=== PATIENT | female | born 1960 | race Caucasian/White ===

== ENCOUNTER 2022-11-12 12:03 | Inpatient (IN) | payer MEDICARE ==
[~2022-11-12] VITALS: Ht 172.7 cm; Wt 114.4 kg
[2022-11-12 12:47] LABS: BASOPHILS ABSOLUTE AUTO 0.05 K/mm3 (0.00-0.23); BASOPHILS PERCENT AUTO 1 % (0-2); EOSINOPHILS ABSOLUTE AUTO 0.24 K/mm3 (0.00-0.68); EOSINOPHILS PERCENT AUTO 3 % (0-6); Hematocrit 43.1 % (33.0-51.0); Hemoglobin 14.2 g/dL (11.5-16.0); IMMATURE GRAN ABSOLUTE AUTO 0.04 K/mm3 (0.00-0.10); IMMATURE GRAN PERCENT AUTO 0 % (0-1); LYMPHOCYTES ABSOLUTE AUTO 2.02 K/mm3 (0.84-5.20); LYMPHOCYTES PERCENT AUTO 22 % (21-46); MONOCYTES ABSOLUTE AUTO 0.67 K/mm3 (0.16-1.47); MONOCYTES PERCENT AUTO 7 % (4-13); Mean Corpuscular HGB 31.1 pg (26.0-34.0); Mean Corpuscular HGB Conc 32.9 g/dL (31.5-36.5); Mean Corpuscular Volume 95 fL (80-100); Mean Platelet Volume 9.3 fL (9.1-12.4); NEUTROPHILS ABSOLUTE AUTO 6.25 K/mm3 (1.96-9.15); NEUTROPHILS PERCENT AUTO 68 % (41-73); Platelet Count 249 K/mm3 (150-400); RDW Coefficient Variation 13.4 % (11.7-14.2); RDW Standard Deviation 46.6 fL (35.1-46.3); Red Blood Cell Count 4.56 M/mm3 (3.80-5.20); White Blood Cell Count 9.27 K/mm3 (4.00-11.30)
[2022-11-12 13:01] LABS: Albumin, Blood 3.5 g/dL (3.4-5.0); Albumin/Globulin Ratio 1.1 (0.8-1.8); Bilirubin, Total 0.4 mg/dL (0.1-1.0); Bun/Creatinine Ratio 20.4 (12.0-20.0); Calcium, Blood 9.3 mg/dL (8.5-10.1); Creatinine, Blood 0.93 mg/dL (0.40-1.00); Globulin, Blood 3.3 g/dL (2.2-4.0); Magnesium, Blood 2.1 mg/dL (1.6-2.4); Potassium, Blood 4.8 mmol/L (3.5-5.5); Total Protein, Blood 6.8 g/dL (6.4-8.2)
[2022-11-12] MEDS ORDERED: CARVEDILOL25 M9 PO (13:08)
[2022-11-12] MEDS ORDERED: PRAMIPEXOLE0.125 M1 PO (13:08)
[2022-11-12] MEDS ORDERED: CYMBALTA30 M2 PO (13:08)
[2022-11-12] MEDS ORDERED: NEURONTIN40010 PO (13:08)
[2022-11-12] MEDS ORDERED: HYDROXYZINE PAM25 MG PO (13:08)
[2022-11-12] MEDS ORDERED: ELIQUIS5 M3 PO (13:08)
[2022-11-12] MEDS ORDERED: LIPITOR80 MG PO (13:08)
[2022-11-12] MEDS ORDERED: PLAVIX75 MG PO (13:08)
[2022-11-12] MEDS ORDERED: ATOR40TA PO (13:09)
[2022-11-12] MEDS ORDERED: LOSA50 PO (13:09)
[2022-11-12 17:47] LABS: International Normalized Ratio 0.96; Prothrombin Time Results 10.1 Sec (9.7-11.5)
[2022-11-12 20:11] VITALS: BP 133/76
[2022-11-13] VITALS (7 sets, daily range): BP systolic 116–145; BP diastolic 62–84
--- NOTE | 2022-11-13 06:12 | NUR ---
SHIFT SUMMARY PATIENT A&OX4. COMPLAINTS OF LIGHT DULL CHEST PAIN. SINUS JAGUAR THROUGHOUT NIGHT. PATIENT EDUCATED ON IGNITION SOURCES WHILE OXYGEN IN USE. PATIENT DENIES THE USE OF IGNITION SOURCES. TROPONINS TRENDING DOWN.
[2022-11-13 11:52] LABS: BASOPHILS ABSOLUTE AUTO 0.03 K/mm3 (0.00-0.23); BASOPHILS PERCENT AUTO 0 % (0-2); EOSINOPHILS ABSOLUTE AUTO 0.19 K/mm3 (0.00-0.68); EOSINOPHILS PERCENT AUTO 2 % (0-6); Hematocrit 43.5 % (33.0-51.0); Hemoglobin 14.6 g/dL (11.5-16.0); IMMATURE GRAN ABSOLUTE AUTO 0.03 K/mm3 (0.00-0.10); IMMATURE GRAN PERCENT AUTO 0 % (0-1); LYMPHOCYTES ABSOLUTE AUTO 2.23 K/mm3 (0.84-5.20); LYMPHOCYTES PERCENT AUTO 29 % (21-46); MONOCYTES ABSOLUTE AUTO 0.51 K/mm3 (0.16-1.47); MONOCYTES PERCENT AUTO 7 % (4-13); Mean Corpuscular HGB 31.4 pg (26.0-34.0); Mean Corpuscular HGB Conc 33.6 g/dL (31.5-36.5); Mean Corpuscular Volume 94 fL (80-100); Mean Platelet Volume 9.5 fL (9.1-12.4); NEUTROPHILS ABSOLUTE AUTO 4.84 K/mm3 (1.96-9.15); NEUTROPHILS PERCENT AUTO 62 % (41-73); Platelet Count 223 K/mm3 (150-400); RDW Coefficient Variation 13.7 % (11.7-14.2); RDW Standard Deviation 46.8 fL (35.1-46.3); Red Blood Cell Count 4.65 M/mm3 (3.80-5.20); White Blood Cell Count 7.83 K/mm3 (4.00-11.30)
[2022-11-13 12:34] LABS: Albumin, Blood 3.6 g/dL (3.4-5.0); Albumin/Globulin Ratio 1.1 (0.8-1.8); Bilirubin, Total 0.5 mg/dL (0.1-1.0); Bun/Creatinine Ratio 15.9 (12.0-20.0); Calcium, Blood 9.5 mg/dL (8.5-10.1); Creatinine, Blood 0.88 mg/dL (0.40-1.00); Globulin, Blood 3.4 g/dL (2.2-4.0); Potassium, Blood 4.1 mmol/L (3.5-5.5)
--- NOTE | 2022-11-13 17:49 | NUR ---
SHIFT SUMMARY; ASSUMED CARE AT 0700. A/A/OX4. INDEPENDANT IN ROOM. EVAL BY CARDIOLOGY THIS AM, WILL PLAN FOR ANGIO TOMORROW AM, HEPARIN AT 20UNIT/KG. INDEPENDANT IN ROOM, VSS, DENIES CP. ECHO COMPLETED, WILL CONTINUE TO MONITOR AND TREAT UNTIL CHANGE OF SHIFT.
[2022-11-14] VITALS (9 sets, daily range): BP systolic 122–1135; BP diastolic 63–90
--- NOTE | 2022-11-14 05:03 | NUR ---
SHIFT SUMMARY A/OX4, IND IN ROOM. SPO2 >92% ON RA. TELE SB 40-60, DENIES CHEST PAIN/PRESSURE. HEPARIN GTT INFUSING PER EMAR. NPO SINCE 0000, PLAN FOR ANGIO TODAY. VSS, NO ACUTE CHANGES AT THIS TIME. BED IN LOWEST POSITION WITH CALL LIGHT IN REACH. WILL CONTINUE TO MONITOR AND REPORT TO ONCOMING RN. PATIENT EDUCATED RE: IGNITION SOURCES AND RISK OF INJURY WHILE OXYGEN IS IN USE. PATIENT DENIES SMOKING VERBALIZES UNDERSTANDING.
[2022-11-14 06:06] LABS: Bun/Creatinine Ratio 17.2 (12.0-20.0); Calcium, Blood 9.2 mg/dL (8.5-10.1); Creatinine, Blood 0.99 mg/dL (0.40-1.00); Potassium, Blood 5.1 mmol/L (3.5-5.5)
[2022-11-14 06:55] LABS: BASOPHILS ABSOLUTE AUTO 0.05 K/mm3 (0.00-0.23); BASOPHILS PERCENT AUTO 1 % (0-2); EOSINOPHILS ABSOLUTE AUTO 0.29 K/mm3 (0.00-0.68); EOSINOPHILS PERCENT AUTO 4 % (0-6); Hematocrit 42.6 % (33.0-51.0); Hemoglobin 14.7 g/dL (11.5-16.0); IMMATURE GRAN ABSOLUTE AUTO 0.03 K/mm3 (0.00-0.10); IMMATURE GRAN PERCENT AUTO 0 % (0-1); LYMPHOCYTES ABSOLUTE AUTO 1.84 K/mm3 (0.84-5.20); LYMPHOCYTES PERCENT AUTO 22 % (21-46); MONOCYTES ABSOLUTE AUTO 0.67 K/mm3 (0.16-1.47); MONOCYTES PERCENT AUTO 8 % (4-13); Mean Corpuscular HGB 31.5 pg (26.0-34.0); Mean Corpuscular HGB Conc 34.5 g/dL (31.5-36.5); Mean Corpuscular Volume 91 fL (80-100); Mean Platelet Volume 9.4 fL (9.1-12.4); NEUTROPHILS PERCENT AUTO 66 % (41-73); Platelet Count 213 K/mm3 (150-400); RDW Coefficient Variation 13.5 % (11.7-14.2); RDW Standard Deviation 45.2 fL (35.1-46.3); Red Blood Cell Count 4.66 M/mm3 (3.80-5.20); White Blood Cell Count 8.38 K/mm3 (4.00-11.30)
--- NOTE | 2022-11-14 13:08 | NUR ---
Pt called while primary RN away, small amount of blood noted, pt states that isnt how it looked before taking air out, replaced 2cc of air into tr band. will continue to monitor, will update primary RN.
--- NOTE | 2022-11-14 18:15 | NUR ---
SHIFT SUMMARY ASSUMED CARE AT 0700, TAKEN TO REGISTRATION SCHEDULING SPECIALIST THIS AM. RIGHT RADIAL SITE TR BAND RECOVERED PER ORDERS, ARM BOARD IN PLACE. CAP REFILL REMAINED <3, PALPABLE RADIAL PULSE, TEGADERM IN PLACE. HEPARIN STARTED 1 HOUR POST BAND REMOVAL PER ORDERS AT 1630, INFUSING AT 17UNITS/KG. INDEPENDANT IN ROOM, COOPERATIVE WITH CARE, VSS, WILL CONTINUE TO MONITOR AND TREAT UNTIL CHANGE OF SHIFT.
--- NOTE | 2022-11-14 22:12 | NUR ---
LABS 2200 PT DENYING APTT. UPON THIS RN ENTERING ROOM TO ASK PATIENT WHY, SHE STATES: "YOU KNOW, I WASNT TOLD I WOULD HAVE TO BE ON THIS DRIP, THE PRINTED CIRCUIT BOARD PCB DESIGNER NEVER CAME TO TALK TO ME OR MY AND TANVIR BEEN POKED 50 TIMES NOW. IM SICK OF IT AND I WANT TO GO HOME. 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 PT STATES "FINE, YA'LL GET ONE MORE POKE TONIGHT AND THAT'S IT". THIS LUMBER SCALER ASKED INSTRUMENTATION ENGINEERING TECHNICIAN TO DRAW AM LABS NOW THE PATIENT STATES HER REFUSAL OF ANY MORE BLOOD DRAWS FROM THIS POINT ON.
[2022-11-15 00:26] VITALS: BP 126/74
[2022-11-15 04:24] VITALS: BP 134/64
--- NOTE | 2022-11-15 04:30 | NUR ---
UPDATE HEPARIN GTT D/C'D AT 0430.
--- NOTE | 2022-11-15 05:48 | NUR ---
SHIFT SUMMARY A/OX4, IND IN ROOM. TELE SB 40-60, DENIES CHEST PAIN/PRESSURE. SPO2 >92% ON RA. HEPARIN GTT STOPPED AT 0430. TEGADERM TO R. RADIAL PUNCTURE SITE W/O SIGNS OF HEMATOMA OR OOZING. VSS, NO ACUTE CHANGES AT THIS TIME. BED IN LOWEST POSITION WITH CALL LIGHT IN REACH. WILL CONTINUE TO MONITOR AND REPORT TO ONCOMING RN. PATIENT EDUCATED RE: IGNITION SOURCES AND RISK OF INJURY WHILE OXYGEN IS IN USE. PATIENT DENIES SMOKING & PATIENT VERBALIZES UNDERSTANDING.
[2022-11-15 07:57] VITALS: BP 125/65
--- NOTE | 2022-11-15 13:02 | NUR ---
PT DISCHARGE TO HOME WITH DISCHARGE ORDERS, DR SCOTT CAME AND SAW PT TODAY RECOMMENDED PT TO CONTINUE BABY ASPIRIN FOR A MONTH ALONG WITH PLAVIX. NO NEW MEDICATIONS ORDERED. INSTRUCTED TO FF-UP WITH PCP AND CARDIOLOGISTS UP IN [place] WITHIN A MONTH PER DR SCOTT. PT DENIES CHEST PAIN/PRESSURE, RIGHT RADIAL SITE WITH CLEAR DRESSING INTACT. VITALS HAS BEEN STABLE. PT ACCOMPANIED AMBULATORY BY AND THIS RN FOR TRANSPORT. ALL BELONGINGS SENT WITH THE PT
== END 2022-11-15 12:15 | disposition home or self-care (01) | DRG 281 ==
LOC: ER 12:03 → PCU 16:45
PROVIDERS: Emergency Medicine; Internal Medicine; ADMIT Internal Medicine
PROC: 4A023N7 Measurement of Cardiac Sampling and Pressure, Left Heart, Percutaneous Approach (ICD-10-PCS; principal; 2022-11-14)
PROC: B2111ZZ Fluoroscopy of Multiple Coronary Arteries using Low Osmolar Contrast (ICD-10-PCS; 2022-11-14)
PROC: B2151ZZ Fluoroscopy of Left Heart using Low Osmolar Contrast (ICD-10-PCS; 2022-11-14)
DX: I21.4 Non-ST elevation (NSTEMI) myocardial infarction (principal); D68.59 Other primary thrombophilia; I25.10 Atherosclerotic heart disease of native coronary artery without angina pectoris; I10 Essential (primary) hypertension; E78.5 Hyperlipidemia, unspecified; F32.A Depression, unspecified; F41.9 Anxiety disorder, unspecified; J45.909 Unspecified asthma, uncomplicated; F17.210 Nicotine dependence, cigarettes, uncomplicated; G62.9 Polyneuropathy, unspecified; Z79.01 Long term (current) use of anticoagulants; Z79.899 Other long term (current) drug therapy
CPT/HCPCS: 36415; 71046; 76937; 80048; 80053; 83735; 83880; 84484; 85025; 85347; 85610; 85730; 93005; 93010; 93458; 96374; 96375; 96376; 99152; 99153; 99285-25; A9270; C1769; C1887; C1894; C8929; G0378; J1644; J2250; J2405; J3010; J7030; J7040; J7050; Q0177; Q9957; Q9967

== ENCOUNTER 2023-11-20 08:49 | Day surgery (SDC) | payer BC, MEDICARE ==
[~2023-11-20] VITALS: Ht 172.7 cm; Wt 120.9 kg
[~2023-11-20 08:49] MED LIST: ATOR40TA PO; CARVEDILOL25 M9 PO; CYMBALTA30 M2 PO; ELIQUIS5 M3 PO; FentaNYL Citrate 50 MCG/ML 2 ML Injection ONE; HYDROXYZINE PAM25 MG PO; LIPITOR80 MG PO; LOSA50 PO; Lidocaine 1%-Epineph 1:100000 20 ML MDV ONE; Midazolam HCl 1MG / ML 2ML Vial ONE; NEURONTIN40010 PO; PLAVIX75 MG PO; PRAMIPEXOLE0.125 M1 PO; Rocuronium Bromide 10 MG/ML 5ML Injection IV ONE; propofoL 20 ML IV ONE
[2023-11-20] MEDS ORDERED: ALBU8HFA2 INH (09:14)
[2023-11-20] MEDS ORDERED: CeFAZolin Sodium 3,000 MG in NS 100 ML IV SCH (09:15)
[2023-11-20] MEDS ORDERED: ESCI20 PO (09:16)
[2023-11-20] MEDS ORDERED: Crestor40 MG PO (09:16)
[2023-11-20] MEDS ORDERED: Tranexamic Acid 100 ML IV ONE (09:20)
[2023-11-20] MEDS ORDERED: Lactated Ringer's 1,000 ML IV ONE ×4 (09:20→13:30)
--- NOTE | 2023-11-20 10:05 | NUR ---
11/20/23 [facility] [place] NOTIFIED OF PATIENT HAVING A MOLE REMOVED FROM HER BACK YESTERDAY AND THAT THE AREA IS OPEN BUT COVERED WITH A BANDAID. PER DR VELASQUEZ OK TO PROCEED
[2023-11-20] MEDS ORDERED: Glycopyrrolate 0.2 MG/ML 5ML VIAL ONE (10:30)
[2023-11-20] MEDS ORDERED: EPINEPhrine HCl 1 MG/ML 1ML Amp XX ONE (10:34)
[2023-11-20] MEDS ORDERED: Lidocaine 1%-Epineph 1:100000 20 ML MDV INJ ONE (10:34)
[2023-11-20] MEDS ORDERED: ePHEDrine Sulfate 50 MG/ML 1ML Injection ONE ×2 (10:38→13:33)
--- NOTE | 2023-11-20 10:42 | NUR ---
11/20/23 1042 Angeles Gomez 1ML OF EPI (1MG/ML) ADDED TO EACH OF THE FIRST THREE BAGS OF LR FOR IRRIGATION AT THE OPSITE. 3ML TOTAL. SINGLE DOSE OF TXA GIVEN IN OR AT 1025 BY ANESTHESIA.
[2023-11-20] MEDS ORDERED: Vasopressin 20 UNITS/ML 1ML Vial ONE (11:06)
[2023-11-20] MEDS ORDERED: Dexamethasone Sod Phos 10 MG/ML 1ML VIAL ONE (11:25)
[2023-11-20] MEDS ORDERED: Ondansetron HCl 2 MG / ML 2ML Vial ONE (11:25)
[2023-11-20] MEDS ORDERED: Sugammadex Sodium 200 MG/2ML SDV (100 MG/ML) ONE (11:27)
[2023-11-20] MEDS ORDERED: Ipratropium/Albuterol SulF 2.5-0.5MG/3 ML Amp ONE (11:45)
--- NOTE | 2023-11-20 12:11 | NUR ---
11/20/23 1211 Francis Lott PT INITIALLY COUGHING FREQUENTLY IN SDU BRETHING APPEARED RELAXED PRIOR TO TRANSFER TO SDU.
--- NOTE | 2023-11-20 12:48 | NUR ---
11/20/23 1248 Lott, Francis 500ML FLUID BOLUS INITIATED, PER CONSERVATION PLANNER BARLAG ORDERS. PT DENIES DIZZINESS, CP, SOB, AND OTHER CARDIA SYMPTOMS. NONE OBSERVED.
[2023-11-20 13:14] VITALS: BP 93/52
== END 2023-11-20 14:53 | disposition home or self-care (01) ==
LOC: ORSCSDS 08:49
PROVIDERS: Orthopaedic Surgery Sports Medicine
PROC: 0PBB4ZZ Excision of Left Clavicle, Percutaneous Endoscopic Approach (ICD-10-PCS; principal; 2023-11-20 10:15)
PROC: 0RNK4ZZ Release Left Shoulder Joint, Percutaneous Endoscopic Approach (ICD-10-PCS; principal; 2023-11-20 10:15)
PROC: 0LM24ZZ Reattachment of Left Shoulder Tendon, Percutaneous Endoscopic Approach (ICD-10-PCS; principal; 2023-11-20 10:15)
DX: M75.112 Incomplete rotator cuff tear or rupture of left shoulder, not specified as traumatic (principal); M75.22 Bicipital tendinitis, left shoulder; M75.42 Impingement syndrome of left shoulder; M19.012 Primary osteoarthritis, left shoulder; I10 Essential (primary) hypertension; I25.10 Atherosclerotic heart disease of native coronary artery without angina pectoris; Z87.891 Personal history of nicotine dependence; J45.909 Unspecified asthma, uncomplicated; Z79.899 Other long term (current) drug therapy; Z86.718 Personal history of other venous thrombosis and embolism; E78.00 Pure hypercholesterolemia, unspecified; I25.2 Old myocardial infarction; Z79.01 Long term (current) use of anticoagulants; Z79.82 Long term (current) use of aspirin; E66.9 Obesity, unspecified; Z68.39 Body mass index [BMI] 39.0-39.9, adult
CPT/HCPCS: C1713; J0171; J0690; J1100; J2250; J2405; J2704; J3010; J7120